=== PATIENT | male | born 1990 | race African-American/Black ===

== ENCOUNTER 2016-12-11 10:15 | Emergency (ER) | payer OTHER ==
[~2016-12-11] VITALS: Ht 175.3 cm; Wt 76.8 kg
[2016-12-11 11:35] LABS: POINT-OF-CARE METER ID UU14100415
[2016-12-11 11:37] LABS: HEMATOCRIT 47.3 % (38.0-50.0); MCH 30.2 PG (29.0-34.0); MCHC 33.4 G/DL (30.0-36.0); MCV 90.3 FL (86-99); MEAN PLAT.VOLUME 9.8 uM^3 (9.0-12.4); PLATELET COUNT 269 K/uL (156-360); RBC DIS.WIDTH-CV 13.1 % (11.8-14.6); RBC DIS.WIDTH-SD 43.6 % (39-53); RED BLOOD COUNT 5.24 M/uL (4.00-5.50); WHITE BLOOD COUNT 18.2 K/uL (4.1-10.2)
[2016-12-11 11:46] LABS: CHLORIDE 102 mEq/L (99-109); POTASSIUM 5.2 mEq/L (3.7-5.4); SODIUM 137 mEq/L (136-147)
[2016-12-11 11:48] LABS: GLUCOSE 205 mg/dL (70-99)
[2016-12-11 11:49] LABS: ANION GAP 9 MEQ/L (2-14)
[2016-12-11 11:50] LABS: TOTAL BILIRUBIN 0.6 mg/dL (0.0-1.0)
[2016-12-11 11:51] LABS: ALKALINE PHOSPHATASE 78 IU/L (3-129)
[2016-12-11 11:52] LABS: GFR ESTIMATE (CALCULATED) > 59 mL/min/
[2016-12-11 11:53] LABS: UREA NITROGEN (BUN) 16 mg/dL (9-23)
[2016-12-11 13:09] LABS: ADD MIUA? NO; BILIRUBIN NEGATIVE; BLOOD NEGATIVE; COLOR YELLOW ((YELLOW)); GLUCOSE (STRIP) 150; KETONES 5; LEUKOCYTES NEGATIVE; NITRITE NEGATIVE; PROTEIN (STRIP) 30; SPECIFIC GRAVITY 1.019 (1.000-1.030); UCUL ADDED? NO; UROBILINOGEN 0.2 MG/DL (0.2-1.0)
[2016-12-11] MEDS ORDERED: ZOFRAN4 MG PO (15:56)
[2016-12-11 16:27] VITALS: BP 132/86
== END 2016-12-11 16:30 | disposition home or self-care (01) ==
LOC: EME 10:15
PROVIDERS: Emergency Medicine
DX: R11.2 Nausea with vomiting, unspecified (principal); E11.9 Type 2 diabetes mellitus without complications; Z79.4 Long term (current) use of insulin; J45.909 Unspecified asthma, uncomplicated; B34.9 Viral infection, unspecified; K59.00 Constipation, unspecified
CPT/HCPCS: 74177; 80053; 81003; 82010; 82948; 85027; 99281; 99285; J2405; J7030